=== PATIENT | male | born 1960 | race Caucasian/White ===

== ENCOUNTER → 2017-08-04 | Outpatient (CLI) | payer BC ==
--- NOTE | 2017-08-04 15:58 | XR ---
EXAMINATION TYPE: XR humerus LT DATE OF EXAM: 08/04/2017 CLINICAL HISTORY: pain TECHNIQUE: Frontal and lateral images of the left humerus are obtained. COMPARISON: None. FINDINGS: There is soft tissue mass resulting in bony remodeling with cortical and intramedullary irr egularity involving the middle to distal portions of the left humeral diaphysis. 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 Strict clinical correlation is advised. Displaced fracture at this time. IMPRESSION: There is no acute fracture or dislocation. Soft tissue mass with cortical and intramedullary irregula rity involving the right humeral diaphysis extending from its midportion distally. 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 Strict clinical correlation advised. ICD 10 NO FRACTURE, INITIAL EVALUATION
--- NOTE | 2017-08-04 16:00 | XR ---
EXAMINATION TYPE: XR chest 2V DATE OF EXAM: 08/04/2017 COMPARISON: 08/04/2017 HISTORY: Shortness of breath TECHNIQUE: Frontal and lateral views of the chest are obtained. FINDINGS: Scattered senescent parenchymal changes noted. Hyperinflation compatible with COPD. No evidence for infiltrate. No evidence for atelectasis. Heart size is stable. Mediastinal structures are stable and grossly unremarkable. No evidence for hilar prominence. Degenerative changes dorsal spine. IMPRESSION: 1. No evidence for acute pulmonary disease.
--- NOTE | 2017-08-04 17:28 | US ---
EXAMINATION TYPE: US venous doppler duplex UE LT DATE OF EXAM: 08/04/2017 COMPARISON: NONE CLINICAL HISTORY: R22.32 Left arm swelling. Left arm swelling x a few months but feels like it is get ting worse. 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 No sharp pain but has a little tin gling. SIDE PERFORMED: Left Left Arm: Appears NEGATIVE for DVT for veins visualized. Unable to visualize brachial veins due to m ass like structure surrounding brachial artery. Upper arm mass at swelling area estimated at 13.5 x 7.5 x 8.5 cm IMPRESSION: There is a complex mass in the anterior left upper arm consistent with muscle contraction and tendon tear. No evidence of deep venous thrombosis. Other soft tissue Mass Etiology is not excluded.
== END | disposition home or self-care (01) ==
LOC: RADUSWWP 15:27
PROVIDERS: ATTEND Physician Assistant
DX: R22.32 Localized swelling, mass and lump, left upper limb (principal); F17.200 Nicotine dependence, unspecified, uncomplicated
CPT/HCPCS: 71046

== ENCOUNTER → 2017-08-08 | Outpatient (CLI) | payer BC ==
--- NOTE | 2017-08-09 02:40 | MR ---
MR scan of the left humerus. History sarcoma. Comparison none. TECHNIQUE: Multiplanar multiecho imaging of the left humerus was performed without and subsequently with intrave nous contrast. The contrast was Magnevist 8.5 mL. FINDINGS: There is a large somewhat lobulated mass involving the entire left upper arm extending from the supra condylar distal humerus to the proximal shaft of the humerus. This has overall size of 22 x 9 cm. The re is some mild surrounding subcutaneous edema. There is posterior displacement of the triceps muscle and anterior displacement of biceps muscle. There is mild enhancement of the mass. The mass is wrapp ed around the brachial artery and nerve. There is probably some muscle bundle infiltration on the lat eral aspect of the mass. I see no humerus fracture. IMPRESSION: Large mass is somewhat wrapped around the entire shaft of the humerus and displacing the muscle bundl es. No fracture seen. There is mild enhancement. This appearance is consistent with a soft tissue mark coma. I do not see definite bone involvement to suggest osteosarcoma. There is moderate subcutaneous edema around the upper arm..
== END | disposition home or self-care (01) ==
LOC: RADMRIMAIN 19:43
PROVIDERS: ATTEND Family Medicine
DX: C49.9 Malignant neoplasm of connective and soft tissue, unspecified (principal); R60.0 Localized edema
CPT/HCPCS: 73220; A9581

== ENCOUNTER → 2017-08-25 | Outpatient (CLI) | payer BC ==
--- NOTE | 2017-08-26 11:25 | ECHOF ---
Referral Reason:Lymphoma C83.94,Z01.818 Pre chemo MEASUREMENTS -------- HEIGHT: 182.9 cm WEIGHT: 86.6 kg BP: RVIDd: 3.4 cm (< 3.3) IVSd: 1.0 cm (0.6 - 1.1) LVIDd: 5.0 cm (3.9 - 5.3) LVPWd: 1.0 cm (0.6 - 1.1) IVSs: 1.6 cm LVIDs: 3.3 cm LVPWs: 1.9 cm Ao Diam: 3.6 cm (2.0 - 3.7) AV Cusp: 1.5 cm (1.5 - 2.6) LA Diam: 2.7 cm (2.7 - 3.8) MV EXCURSION: 20.130 mm (> 18.000) MV EF SLOPE: 242 mm/s (70 - 150) EPSS: 0.8 cm MV E Michael: 0.61 m/s MV DecT: 199 ms MV A Michael: 0.68 m/s MV E/A Ratio: 0.90 RAP: 5.00 mmHg RVSP: 19.26 mmHg FINDINGS -------- Sinus rhythm. This was a technically difficult study with suboptimal views. The left ventricular size is normal. Left ventricular wall thickness is normal. Overall left vent ricular systolic function is low-normal with, an EF between 50 - 55 %. The right ventricle is mildly enlarged. The left atrium is normal in size. The right atrium is normal in size. Lumason used The aortic valve was not well visualized. There is trace mitral regurgitation. Trace tricuspid regurgitation present. The right ventricular systolic pressure, as measured by Dopp ler, is 19.26mmHg. The pulmonic valve was not well visualized. The aortic root size is normal. The pericardium is normal. CONCLUSIONS -------- 1. Sinus rhythm. 2. This was a technically difficult study with suboptimal views. 3. The left ventricular size is normal. 4. Left ventricular wall thickness is normal. 5. Overall left ventricular systolic function is low-normal with, an EF between 50 - 55 %. 6. The right ventricle is mildly enlarged. 7. The left atrium is normal in size. 8. The right atrium is normal in size. 9. Lumason used 10. The aortic valve was not well visualized. 11. There is trace mitral regurgitation. 12. Trace tricuspid regurgitation present. 13. The right ventricular systolic pressure, as measured by Doppler, is 19.26mmHg. 14. The pulmonic valve was not well visualized. 15. The aortic root size is normal. 16. The pericardium is normal. COLLECTION CARD CLERK: Anita Hazel RDCS
== END | disposition home or self-care (01) ==
LOC: RADECHMAIN 14:53
PROVIDERS: ATTEND Internal Medicine Hematology & Oncology
DX: Z01.818 Encounter for other preprocedural examination (principal); I51.7 Cardiomegaly; C83.34 Diffuse large B-cell lymphoma, lymph nodes of axilla and upper limb
CPT/HCPCS: 93306; Q9950

== ENCOUNTER → 2017-08-27 | Outpatient (CLI) | payer BC ==
--- NOTE | 2017-08-28 13:33 | PE ---
Nuclear medicine PET/CT HISTORY: Lymphoma, initial Patient received 10.5 mCi F-18 FDG intravenously in delayed scanning was performed from the skull bas e to the mid thighs. Localization and attenuation correction CT scan was performed. Exam correlated t o MR left humerus 08/08/2017, CT abdomen pelvis 12/27/2016 Neck and chest: There is extensive abnormal density involving the proximal left upper extremity, ther e is associated hypermetabolic uptake, SUV is 24. No suspicious hypermetabolic uptake is otherwise no violeta. The lungs show some apical emphysematous change, there is no suspicious lung nodule. No mediasti nal, axillary, or hilar adenopathy. Subpectoral nodes shows only faint uptake, SUV 1.7 in the left up per chest. Abdomen pelvis: No suspicious hypermetabolic uptake. No retroperitoneal adenopathy, no evident liver mass. Osseous structures: Otherwise unremarkable. No suspicious hypermetabolic uptake within the axial skel eton. IMPRESSION: Hypermetabolic uptake is limited to the left upper extremity with additional finding of s mall subpectoral node as described.
== END | disposition home or self-care (01) ==
LOC: RADPETMAIN 16:47
PROVIDERS: ATTEND Internal Medicine Hematology & Oncology
DX: C83.34 Diffuse large B-cell lymphoma, lymph nodes of axilla and upper limb (principal)
CPT/HCPCS: 78815; A9552

== ENCOUNTER 2017-09-01 11:14 | Day surgery (SDC) | payer BC ==
[2017-08-29 08:33] VITALS: BMI 27.2
[~2017-09-01 11:14] MED LIST: DEXAMETHASONE SOD PHOSPHATE 10 MG/ML 1 ML VIAL IV ONE; HEPARIN SODIUM,PORCINE 5,000 UNIT/ML 1 ML VIAL SQ ONE; HYDROmorphone 0.5 MG/0.5 ML SYRINGE IVP PRN; LACTATED RINGERS 1,000 ML IV SCH; ONDANSETRON 4 MG/2 ML VIAL IVP ONE; Pre Op ABX Message 1 EACH MISC MISCELLANE ONE
[2017-09-01 11:37] VITALS: RESP 16; TEMP 98.5
[2017-09-01] MEDS ORDERED: LIDOCAINE 1% 20 ML VIAL (10MG/ML) FOR IV START INTRADERMA ONE (11:43)
[2017-09-01] MEDS ORDERED: SCOPOLAMINE 1.5MG/72HR PATCH TRANSDERM ONE (11:46)
[2017-09-01] MEDS ORDERED: fentaNYL (PF) 50 MCG/ML 2 ML AMP ONE (12:55)
[2017-09-01] MEDS ORDERED: KETAMINE 10 MG/ML 20 ML VIAL ONE (12:55)
[2017-09-01] MEDS ORDERED: MIDAZOLAM 2 MG/2 ML VIAL ONE (12:55)
[2017-09-01] MEDS ORDERED: LIDOCAINE 1% INJ 10MG/ML (20 ML MDV) ONE (12:55)
[2017-09-01] MEDS ORDERED: PROPOFOL 10 MG/ML 20 ML VIAL IV ONE (12:55)
[2017-09-01] MEDS ORDERED: diphenhydrAMINE 50 MG/ML 1 ML VIAL ONE (12:55)
--- NOTE | 2017-09-01 12:56 | P.GSHP ---
History of Present Illness H&P Date: 09/01/17 Chief Complaint: Lymphoma Patient here today for combined bone marrow biopsy and Port-A-Cath placement. Patient recently diagnosed with lymphoma. Has not had a port in the past. Chemotherapy to begin next week. Past Medical History Past Medical History: Cancer Additional Past Medical History / Comment(s): Recent dx of lymphoma, hx of kidney stones History of Any Multi-Drug Resistant Organisms: None Reported Past Surgical History: No Surgical Hx Reported Additional Past Surgical History / Comment(s): has had one sx after "split his chest open" in industrial accident. Past Anesthesia/Blood Transfusion Reactions: No Reported Reaction Past Psychological History: Anxiety Additional Psychological History / Comment(s): states especially with MRI Smoking Status: Current every day smoker Past Alcohol Use History: None Reported Additional Past Alcohol Use History / Comment(s): smokes 1pdd for 40 plus yrs Past Drug Use History: Marijuana Additional Drug Use History / Comment(s): instructed to hold 24 hrs prior to procedure - Past Family History Father Family Medical History: Cancer Medications and Allergies Home Medications Medication Instructions Recorded Confirmed Type No Known Home Medications 08/29/17 09/01/17 History Allergies Allergy/AdvReac Type Severity Reaction Status Date / Time hydrocodone [From Vicodin] AdvReac Severe Nausea & Verified 09/01/17 11:32 Vomiting alprazolam [From Xanax] AdvReac Nausea & Verified 09/01/17 11:32 Vomiting Surgical - Exam Vital Signs Temp Pulse Resp BP Pulse Ox 98.5 F 89 16 131/81 97 09/01/17 11:36 09/01/17 11:36 09/01/17 11:36 09/01/17 11:36 09/01/17 11:36 Physical exam: General: Well-developed, well-nourished HEENT: Normocephalic, sclerae nonicteric Abdomen: Nontender, nondistended Extremities: No edema Neuro: Alert and oriented Assessment and Plan (1) Lymphoma Narrative/Plan: Will proceed with Port-A-Cath placement at this time. Dr. Meneses Will proceed with bone marrow biopsy at the same time. Current Visit: Yes Status: Acute Code(s): C85.90 - NON-HODGKIN LYMPHOMA, UNSPECIFIED, UNSPECIFIED SITE SNOMED Code(s): 976239215
[2017-09-01] MEDS ORDERED: SODIUM CHLORIDE 0.9% 50 ML with ceFAZolin 2,000 MG IV ONE ×2 (13:20)
[2017-09-01] MEDS ORDERED: LIDOCAINE 1% INJ 10MG/ML (20 ML MDV) SQ ONE (13:40)
[2017-09-01 13:43] LABS: Basophils % (A) 0 %; Eosinophils # (A) 0.1 k/uL (0-0.7); Eosinophils % (A) 1 %; HCT 37.6 % (39.0-53.0); HGB 13.2 gm/dL (13.0-17.5); Lymphocytes # (A) 1.8 k/uL (1.0-4.8); Lymphocytes % (A) 19 %; MCH 31.4 pg (25.0-35.0); MCV 89.6 fL (80.0-100.0); Mean Platelet Volume 7.6; Monocytes # (A) 0.8 k/uL (0-1.0); Monocytes % (A) 9 %; Neutrophils # (A) 6.9 k/uL (1.3-7.7); Neutrophils % (A) 70 %; Platelet Count 352 k/uL (150-450); RBC 4.19 m/uL (4.30-5.90); RDW 13.4 % (11.5-15.5); WBC 9.8 k/uL (3.8-10.6)
--- NOTE | 2017-09-01 14:06 | FL ---
EXAMINATION TYPE: FL guided central line placemt DATE OF EXAM: 09/01/2017 CLINICAL HISTORY: Port-A-Cath insertion TECHNIQUE: Fluoroscopy. COMPARISON: None. FINDINGS/IMPRESSION: Fluoroscopic guidance was provided during procedure performed by Dr. Zazueta. A total of 4 seconds of fluoroscopic time was utilized during the procedure and 2 spot images was acqui red during placement of a Port-A-Cath in the superior vena cava.
[2017-09-01] MEDS ORDERED: NALOXONE 0.4 MG/ML 1 ML VIAL IV PRN (14:19)
[2017-09-01] MEDS ORDERED: HYDROcodone/APAP 5-325MG 1 EACH TAB PO PRN (14:19)
--- NOTE | 2017-09-01 14:21 | P.OP ---
Date of Procedure: 09/01/17 Procedure(s) Performed: PREOPERATIVE DIAGNOSIS: Lymphoma POSTOPERATIVE DIAGNOSIS: Same PROCEDURE: Port-A-Cath placement SURGEON: Carlita EBL: Minimal ANESTHESIA: Sedation COMPLICATIONS: None OPERATIVE PROCEDURE: Patient was brought and placed on the operative table in the supine position. The patient was sedated per anesthesia that time. The chest and neck were prepped and draped in usual sterile fashion. The ultrasound probe was used to identify the location of the right internal jugular vein. The skin was localized with lidocaine. The Seldinger needle was advanced into the IJ under ultrasound guidance. The wire was advanced through the needle under fluoroscopic guidance into the superior vena cava. A port pocket was created in the right infraclavicular location. The catheter was tunneled from the wire entrance site to the port pocket. The port was then connected to the catheter. The dilator introducer was threaded over the guidewire. The guidewire and dilator were then removed. The catheter was advanced through the introducer and introducer was then removed. The tip was seen to be in the right atrial junction. Port was flushed with both saline and a Hep-Lock solution. There was good flow both in and out of the port. The port was sutured in underlying tissues using 3-0 silk sutures. The subcutaneous tissues were reapproximated using 3-0 Vicryl sutures and the skin at both locations using 4-0 Monocryl sutures. Steri-Strips and sterile dressings then applied. DISPOSITION: Stable to recovery room
--- NOTE | 2017-09-01 14:42 | XR ---
EXAMINATION TYPE: XR chest 1V confirm line [facility] DATE OF EXAM: 09/01/2017 COMPARISON: 08/04/2017 HISTORY: 57-year-old male Central line placement, shortness of breath TECHNIQUE: Single frontal view of the chest is obtained. FINDINGS: Right anterior chest wall injection port with catheter tip at the lower SVC. Normal variant azygos fi ssure. Heart normal size. Aorta and pulmonary vasculature within normal limits. No consolidation, pne umothorax, or pleural effusion. IMPRESSION: No acute cardiopulmonary process.
--- NOTE | 2017-09-01 14:47 | PCN ---
PROCEDURE NOTE PREOP DIAGNOSIS: Lymphoma. POSTOP DIAGNOSIS: Lymphoma. ANESTHESIA: Local with IV systemic sedation. DETAILS: Utilizing sterile technique, the skin overlying the right iliac crest was prepared with Betadine and alcohol. After adequate sterile draping, local anesthesia and systemic sedation size 11 4-inch Jamshidi needle was utilized to access the periosteum disease. A total of 15 mL of aspirate as well as 1 cm bone core biopsies were obtained. The patient tolerated the procedure very well. There was no immediate procedure related complication. TOTAL BLOOD LOSS: Less than 1 mL. The results pending. MMODL / IJN: [id number] /
[2017-09-01 14:52] VITALS: BP 106/72; PULSE 79
== END 2017-09-01 15:13 | disposition home or self-care (01) ==
LOC: OR 11:14
PROVIDERS: ATTEND Internal Medicine Hematology & Oncology
DX: C85.90 Non-Hodgkin lymphoma, unspecified, unspecified site (principal); F17.210 Nicotine dependence, cigarettes, uncomplicated; F41.9 Anxiety disorder, unspecified; Z88.5 Allergy status to narcotic agent; Z88.8 Allergy status to other drugs, medicaments and biological substances
CPT/HCPCS: 85025; 77001; 36561; 38222; C1788; J2250; J1200; J1644; J1100; J2405; J2001; J3010; J1642; J0690; J2704

== ENCOUNTER → 2017-11-29 | Outpatient (CLI) | payer BC, OTHER ==
[2017-11-29 16:50] LABS: Blood Urea Nitrogen 12 mg/dL (9-20)
--- NOTE | 2017-11-29 18:03 | CT ---
EXAMINATION TYPE: CT angio chest with contrast and with 3-D Reconstruction renderings. DATE OF EXAM: 11/29/2017 5:25 PM COMPARISON: None HISTORY: Chest pain and SOB CT DLP: 275.8 mGycm Automated exposure control for dose reduction was used. CONTRAST: CTA scan of the thorax is performed with IV Contrast, patient injected with 80 mL of Isovue 370, pulm onary embolism protocol. 3-D reconstructions. FINDINGS: LUNGS: The lungs are grossly clear, there is no concerning parenchymal mass or nodule identified. T here is no pleural effusion or pneumothorax seen. The tracheobronchial tree is patent. MEDIASTINUM: There is satisfactory enhancement of the pulmonary artery and its branches, there is no CT evidence for pulmonary embolism. The aorta is unremarkable. There are no greater than 1 cm hilar o r mediastinal lymph nodes. No cardiomegaly. Subtle coronary calcifications detected. No pericardial effusion. OTHER: No additional significant abnormality is seen. IMPRESSION: NO ACUTE PROCESS. SUBTLE CORONARY CALCIFICATIONS DETECTED.
== END | disposition home or self-care (01) ==
LOC: RADCTMAIN 15:54
PROVIDERS: ATTEND Internal Medicine Hematology & Oncology
DX: I25.10 Atherosclerotic heart disease of native coronary artery without angina pectoris (principal)
CPT/HCPCS: 82565; 84520; 71275; 36415; Q9967

== ENCOUNTER → 2017-12-10 | Outpatient (CLI) | payer BC, OTHER ==
--- NOTE | 2017-12-10 19:56 | PE ---
EXAMINATION TYPE: PET CT fusion skull to thigh DATE OF EXAM: 12/10/2017 COMPARISON: Prior PET/CT August 27, 2017. CTA chest November 29, 2017. HISTORY: Lymphoma initially diagnosed left arm completed chemotherapy November 10. TECHNIQUE: Following the intravenous administration of 10.61 mCi of F-18 FDG, whole body images are performed from the skull base to the midthigh. Images are reviewed on the computer in the coronal, a xial, and sagittal planes. Reconstructed rotating images are created on independent workstation and reviewed on the computer. A noncontrast CT is performed in conjunction with the PET scan. SCAN: Subsequent Scan FINDINGS: AVERAGE MEDIASTINUM SUV: 2.28. AVERAGE LIVER SUV: 2.34. SKULL BASE AND NECK: No new areas of suspicious hypermetabolic uptake are identified. CHEST, MEDIASTINUM, AND HILAR REGION: No new areas of suspicious hypermetabolic uptake are seen. There is marked interval improvement in abnormal uptake in the left upper extremity on the periphery of the field of view but also marked improvement in abnormal soft tissue surrounding the humeral shaf t. No residual abnormal hypermetabolic uptake is seen on current study. ABDOMEN AND PELVIS: No new areas of suspicious hypermetabolic uptake. OSSEOUS STRUCTURES: No new areas of suspicious hypermetabolic uptake. OTHER CT: There is new right internal jugular central venous catheter terminating in SVC. There is azygos lobe/fissure with mild underlying emphysematous change redemonstrated. Some diverticula in the sigmoid colon are redemonstrated. There is some facet arthropathy in the lower lumbar spine. IMPRESSION: Complete metabolic response with no evidence of new or residual hypermetabolic uptake to suggest active or metastatic malignancy.
== END | disposition home or self-care (01) ==
LOC: RADPETMAIN 14:55
PROVIDERS: ATTEND Internal Medicine Hematology & Oncology
DX: C83.34 Diffuse large B-cell lymphoma, lymph nodes of axilla and upper limb (principal)
CPT/HCPCS: 78815; A9552

== ENCOUNTER 2018-03-01 18:50 | Emergency (ER) | payer BC, OTHER ==
[2018-03-01 20:32] VITALS: TEMP 97
--- NOTE | 2018-03-01 20:53 | ED ---
Lower Extremity Injury HPI - General Chief Complaint: Extremity Injury, Lower Stated Complaint: left ankle injury slipped off bottom step Time Seen by Provider: 03/01/18 20:29 Source: patient, family, RN notes reviewed, old records reviewed Mode of arrival: wheelchair Limitations: no limitations - History of Present Illness Initial Comments: This is a 57-year-old male the ER presenting with left ankle injury left ankle pain. Patient to follow-up no sports. Said it was slippery icy and while walking down the front steps he did feel his ankle turn over and pop. Patient is severe left ankle pain, no other injury noted, patient denies significant pain not requiring anything for pain currently. MD Complaint: ankle injury (Left) -: hour(s) Injury: Ankle: Left (Significant edema and swelling, deformity) Type of Injury: inversion Place: home Severity: moderate Severity scale (1-10): 6 Improves With: nothing Worsens With: weight bearing Context: fall Associated Symptoms: snap/pop sensation - Related Data Home Medications Medication Instructions Recorded Confirmed ALPRAZolam [Xanax] 1 mg PO DAILY PRN 03/01/18 03/01/18 Ibuprofen [Motrin] 600 mg PO Q8HR PRN 03/01/18 03/01/18 Omeprazole 20 mg PO DAILY PRN 03/01/18 03/01/18 Allergies Allergy/AdvReac Type Severity Reaction Status Date / Time hydrocodone [From Vicodin] AdvReac Severe Nausea & Verified 03/01/18 21:10 Vomiting Review of Systems ROS Statement: Those systems with pertinent positive or pertinent negative responses have been documented in the HPI. ROS Other: All systems not noted in ROS Statement are negative. Past Medical History Past Medical History: No Reported History Additional Past Medical History / Comment(s): Lymphoma type B History of Any Multi-Drug Resistant Organisms: None Reported Past Surgical History: No Surgical Hx Reported Additional Past Surgical History / Comment(s): mediport Past Psychological History: Anxiety Smoking Status: Current every day smoker Past Alcohol Use History: Occasional Past Drug Use History: None Reported General Exam - General Exam Comments Initial Comments: Patient does have deformity swelling significant left lower extremity, ankle Limitations: no limitations General appearance: alert, in no apparent distress Head exam: Present: atraumatic, normocephalic, normal inspection Eye exam: Present: normal appearance, PERRL, EOMI. Absent: scleral icterus, conjunctival injection, periorbital swelling ENT exam: Present: normal exam, mucous membranes moist Neck exam: Present: normal inspection. Absent: tenderness, meningismus, lymphadenopathy Respiratory exam: Present: normal lung sounds bilaterally. Absent: respiratory distress, wheezes, rales, rhonchi, stridor Cardiovascular Exam: Present: regular rate, normal rhythm, normal heart sounds. Absent: systolic murmur, diastolic murmur, rubs, gallop, clicks GI/Abdominal exam: Present: soft, normal bowel sounds. Absent: distended, tenderness, guarding, rebound, rigid Extremities exam: Present: normal inspection, full ROM, normal capillary refill. Absent: tenderness, pedal edema, joint swelling, calf tenderness Back exam: Present: normal inspection Neurological exam: Present: alert, oriented X3, CN II-XII intact Psychiatric exam: Present: normal affect, normal mood Skin exam: Present: warm, dry, intact, normal color. Absent: rash Course Vital Signs 03/01/18 20:25 Temperature 97 F L Pulse Rate 90 Respiratory 20 Rate Blood Pressure 128/71 O2 Sat by Pulse 97 Oximetry - Reevaluation(s) Reevaluation #1: 03/01/18 21:44 Medical record is reviewed Reevaluation #2: 03/01/18 21:44 Patient not requiring anything for pain Reevaluation #3: 03/01/18 21:[address] Talbert regarding injury, he is aware and will follow-up with patient and the office tomorrow Medical Decision Making - Medical Decision Making 57 male the ER for evaluation of left ankle pain. Twisted left ankle does have trimalleolar fracture left ankle, ankle is splinted here in the emergency room occasional patient can be discharged home - Radiology Data Radiology results: report reviewed (X-ray left ankle shows positive left ankle trimalleolar fracture), image reviewed Disposition Clinical Impression: Closed left trimalleolar fracture, Fall Disposition: HOME SELF-CARE Condition: Good Instructions: Ankle Fracture (ED) Is patient prescribed a controlled substance at d/c from ED?: No Referrals: Cuauhtemoc Talbert MD [STAFF PHYSICIAN] - 1-2 days
--- NOTE | 2018-03-01 21:11 | XR ---
EXAMINATION TYPE: XR ankle complete LT DATE OF EXAM: 03/01/2018 COMPARISON: NONE HISTORY: Ankle pain TECHNIQUE: 3 views FINDINGS: There is oblique fracture distal fibula. There is transverse fracture medial malleolus with 4 mm lateral displacement of the fragment. There is also apparent large nondisplaced chip fracture o f the posterior malleolus. This measures 22 x 7 mm. There is no dislocation. IMPRESSION: There is trimalleolar fracture left ankle without significant displacement.
[2018-03-01 21:51] VITALS: BP 144/74; PULSE 77; RESP 18
== END 2018-03-01 21:50 | disposition home or self-care (01) ==
LOC: EC 18:50
DX: S82.852A Displaced trimalleolar fracture of left lower leg, initial encounter for closed fracture (principal); F17.200 Nicotine dependence, unspecified, uncomplicated; Z88.5 Allergy status to narcotic agent; Z85.72 Personal history of non-Hodgkin lymphomas; W00.0XXA Fall on same level due to ice and snow, initial encounter; Y93.01 Activity, walking, marching and hiking; Y92.008 Other place in unspecified non-institutional (private) residence as the place of occurrence of the external cause
CPT/HCPCS: 99284

== ENCOUNTER 2018-03-13 13:05 | Day surgery (SDC) | payer BC, OTHER ==
[2018-03-06 14:13] VITALS: BMI 28.5
[~2018-03-13 13:05] MED LIST changes: +ACETAMINOPHEN TAB 500 MG TAB PO ONE; -DEXAMETHASONE SOD PHOSPHATE 10 MG/ML 1 ML VIAL IV ONE; -HEPARIN SODIUM,PORCINE 5,000 UNIT/ML 1 ML VIAL SQ ONE; -HYDROmorphone 0.5 MG/0.5 ML SYRINGE IVP PRN; -LACTATED RINGERS 1,000 ML IV SCH; -Pre Op ABX Message 1 EACH MISC MISCELLANE ONE; +ceFAZolin IN SWFI 2 GM/20 ML SYRINGE IVP ONE
[2018-03-13] MEDS ORDERED: LACTATED RINGERS 1,000 ML IV ONE ×2 (13:50→17:55)
[2018-03-13] MEDS ORDERED: LIDOCAINE 1% 20 ML VIAL (10MG/ML) FOR IV START INTRADERMA ONE (13:51)
[2018-03-13] MEDS ORDERED: DEXAMETHASONE SOD PHOSPHATE 10 MG/ML 1 ML VIAL IV ONE (14:00)
[2018-03-13] MEDS ORDERED: MIDAZOLAM 2 MG/2 ML VIAL IVP ONE (15:11)
[2018-03-13] MEDS ORDERED: ROPIVACAINE 5 MG/ML 30 ML VIAL ONE (16:08)
[2018-03-13] MEDS ORDERED: PROPOFOL 10 MG/ML 20 ML VIAL IV ONE (16:08)
[2018-03-13] MEDS ORDERED: SUCCINYLCHOLINE CHLORIDE 100 MG/5 ML SYR IV ONE (16:08)
[2018-03-13] MEDS ORDERED: LIDOCAINE 2%-EPI 1:100,000 20 ML VIAL ONE (16:08)
[2018-03-13] MEDS ORDERED: ROCURONIUM BROMIDE 10 MG/ML 10 ML VIAL IV ONE (16:08)
[2018-03-13] MEDS ORDERED: LIDOCAINE 1% INJ 10MG/ML (20 ML MDV) ONE (16:08)
[2018-03-13] MEDS ORDERED: MIDAZOLAM 2 MG/2 ML VIAL ONE (16:08)
[2018-03-13] MEDS ORDERED: HYDROmorphone (PF) 1 MG/ML ONE (16:08)
[2018-03-13] MEDS ORDERED: NEOSTIGMINE 1 MG/ML 10 ML VIAL ONE (16:08)
[2018-03-13] MEDS ORDERED: GLYCOPYRROLATE 0.2 MG/ML 2 ML VIAL ONE (16:08)
[2018-03-13] MEDS ORDERED: fentaNYL (PF) 50 MCG/ML 2 ML AMP ONE (16:08)
[2018-03-13] MEDS ORDERED: HYDROmorphone 0.5 MG/0.5 ML SYRINGE IVP PRN ×2 (18:14)
[2018-03-13] MEDS ORDERED: SENNOSIDES-DOCUSATE SODIUM 1 EACH TAB PO PRN (18:14)
[2018-03-13] MEDS ORDERED: HYDROmorphone 1 MG/ML 1 ML SYRINGE IVP PRN (18:14)
[2018-03-13] MEDS ORDERED: TEMAZEPAM 15 MG CAP PO PRN (18:14)
[2018-03-13] MEDS ORDERED: diphenhydrAMINE 25 MG CAP PO PRN (18:14)
[2018-03-13] MEDS ORDERED: traMADol 50 MG TAB PO PRN (18:18)
--- NOTE | 2018-03-13 20:06 | FL ---
Fluoroscopy HISTORY: Fracture of ankle 36 seconds fluoroscopy time supplied to the referring clinician. 2 intraoperative C-arm images docum ent the procedure. See dictated report from orthopedic surgery.
--- NOTE | 2018-03-13 20:07 | XR ---
Limited left ankle HISTORY: Fracture 2 intraoperative C-arm images document the procedure
[2018-03-14] MEDS: ceFAZolin IN SWFI 2 GM/20 ML SYRINGE IVP SCH ×2 (00:02→09:38)
[2018-03-14 04:27] VITALS: RESP 16; TEMP 97.6
[2018-03-14 07:30] VITALS: BP 119/79; PULSE 80
[2018-03-14] MEDS ORDERED: ACETAMINOPHEN TAB 500 MG TAB PO PRN (09:07)
--- NOTE | 2018-03-14 09:16 | P.DS ---
Providers Expected date of discharge: 03/14/18 Attending physician: Cuauhtemoc Talbert Consults: 03/13/18 18:14 Consult Physician Routine Consulting Provider: Goyo Olivia Consult Reason/Comments: Medical management Do you want consulting provider notified?: Yes Primary care physician: Goyo Olivia - Discharge Diagnosis(es) (1) Closed left trimalleolar fracture Current Visit: No Status: Acute (2) Fall Current Visit: No Status: Acute Hospital Course: This is a 57-year-old male last seen in our office with complaints of a fall and left ankle pain. He was found to have a trimalleolar fracture. After discussion and consideration, the patient elected to proceed with an ORIF of the left ankle. Patient was seen preoperatively, and medically cleared for surgery by his primary care physician. Patient was admitted to [facility] underwent an ORIF of the left trimalleolar fracture on 03/13/[address] Talbert. The procedure was performed without complications or sequelae. The patient is seen and evaluated at bedside today. Pain is controlled. Patient has no new complaints today and denies any fevers, chills, nausea, vomiting, or shortness of breath. Vital signs are stable. Dressing and splint are clean dry and intact. He is able to wiggle his toes without difficulty. Patient's left lower extremity is neurovascularly intact. The patient is orthopedically stable for discharge today. Patient Condition at Discharge: Stable Plan - Discharge Summary Discharge Rx Participant: No New Discharge Prescriptions: New Aspirin [Adult Low Dose Aspirin EC] 81 mg PO DAILY #1 tablet.dr Masters-Docusate Sodium [Senokot-S] 1 tab PO BID #60 tablet Acetaminophen Tab [Tylenol Tab] 1,000 mg PO Q6HR PRN #30 tablet PRN Reason: Pain No Action Ibuprofen [Motrin] 600 mg PO Q8HR PRN PRN Reason: Pain ALPRAZolam [Xanax] 1 mg PO DAILY PRN PRN Reason: Anxiety Omeprazole 20 mg PO DAILY PRN PRN Reason: GERD traMADol HCL [Ultram] 100 mg PO Q6HR PRN PRN Reason: Pain Discharge Medication List ALPRAZolam [Xanax] 1 mg PO DAILY PRN 03/01/18 [History] Ibuprofen [Motrin] 600 mg PO Q8HR PRN 03/01/18 [History] Omeprazole 20 mg PO DAILY PRN 03/01/18 [History] traMADol HCL [Ultram] 100 mg PO Q6HR PRN 03/06/18 [History] Aspirin [Adult Low Dose Aspirin EC] 81 mg PO DAILY #1 tablet. 03/13/18 [Rx] Sennosides-Docusate Sodium [Senokot-S] 1 tab PO BID #60 tablet 03/13/18 [Rx] Acetaminophen Tab [Tylenol Tab] 1,000 mg PO Q6HR PRN #30 tablet 03/14/18 [Rx] Follow up Appointment(s)/Referral(s): Anita Saldaña, PAC [PHYSICIAN PATTERN ATTENDANT] - 2 Weeks Patient Instructions/Handouts: *Surgery [facility] - (Anesthesia) Discharge Instructions Outpatient Surgery Activity/Diet/Wound Care/Special Instructions: Non wt bearing LLE w walker. Keep splint intact. Discharge Disposition: HOME SELF-CARE
--- NOTE | 2018-03-14 11:53 | P.CONS ---
History of Present Illness - History of Present Illness 57-year-old male with history of lymphoma post chemo and radiation therapy and developed left ankle fracture. Patient's post repair of the ankle fracture. 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 fell 03/01/18 and broke lt ankle-currently using crutches History of Any Multi-Drug Resistant Organisms: None Reported Past Surgical History: No Surgical Hx Reported Additional Past Surgical History / Comment(s): mediport. REPAIR UPPER CHEST MUSCLE R/T PAST FALL Past Anesthesia/Blood Transfusion Reactions: Motion Sickness Past Psychological History: Anxiety Smoking Status: Current every day smoker Past Alcohol Use History: None Reported Additional Past Alcohol Use History / Comment(s): WAS SMOKING OVER 1 PPD, DOWN TO 4 CIGARETTES DAILY. HAS SMOKES FOR OVER 40+ YEARS Past Drug Use History: Marijuana Additional Drug Use History / Comment(s): LAST USED MARIJUANA TODAY. INSTRUCTED TO REFRAIN FROM USE FOR AT LEAST 24 HOURS PRIOR TO PROCEDURE - Past Family History Father Family Medical History: Cancer Sister(s) Family Medical History: CVA/TIA, Myocardial Infarction ([place]), Pulmonary Embolus Brother(s) Family Medical History: CVA/TIA, Myocardial Infarction [place]) Medications and Allergies Home Medications Medication Instructions Recorded Confirmed Type ALPRAZolam [Xanax] 1 mg PO DAILY PRN 03/01/18 03/06/18 History Ibuprofen [Motrin] 600 mg PO Q8HR PRN 03/01/18 03/06/18 History Omeprazole 20 mg PO DAILY PRN 03/01/18 03/06/18 History traMADol HCL [Ultram] 100 mg PO Q6HR PRN 03/06/18 03/13/18 History Aspirin [Adult Low Dose Aspirin EC] 81 mg PO DAILY #1 tablet. 03/13/18 Rx Sennosides-Docusate Sodium 1 tab PO BID #60 tablet 03/13/18 Rx [Senokot-S] Acetaminophen Tab [Tylenol Tab] 1,000 mg PO Q6HR PRN #30 tablet 03/14/18 Rx Allergies Allergy/AdvReac Type Severity Reaction Status Date / Time hydrocodone [From Vicodin] AdvReac Severe Nausea & Verified 03/13/18 13:20 Vomiting Physical Exam Vitals: Vital Signs Temp Pulse Pulse Resp BP BP Pulse Ox 03/14/18 07:10 97.6 F 80 16 119/79 98 03/14/18 04:25 97.6 F 68 16 113/68 96 03/14/18 04:00 68 16 03/14/18 00:00 97.9 F 73 15 132/84 96 03/13/18 20:00 92 15 03/13/18 19:27 97.3 F L 92 15 142/89 96 03/13/18 18:56 84 16 154/89 94 L 03/13/18 18:41 86 16 129/79 98 03/13/18 18:26 80 16 120/80 97 03/13/18 18:11 97 F L 93 20 135/81 94 L 03/13/18 15:33 76 16 130/79 98 03/13/18 13:51 97.4 F L 93 16 139/94 100 Intake and Output 03/13/18 03/14/18 03/14/18 22:59 06:59 14:59 Intake Total 800 240 Output Total 10 Balance 790 240 Intake: IV 800 Oral 240 Output: Estimated Blood Loss 10 Other: Voiding Method Urinal Urinal # Voids 0 2 Weight 95.254 kg 95.254 kg - Constitutional General appearance: mild distress - EENT Eyes: PERRLA Ears: bilateral: normal - Neck Neck: normal ROM - Respiratory Respiratory: bilateral: CTA - Cardiovascular Rhythm: regular - Gastrointestinal General gastrointestinal: soft - Integumentary Integumentary: normal - Neurologic Neurologic: CNII-XII intact - Musculoskeletal Cast to left lower leg - Psychiatric Psychiatric: A&O x's 3, appropriate affect, intact judgment & insight Assessment and Plan Plan: Assessment Left ankle try mallear fracture postrepair History of the lipoma finished chemo and radiation therapy History of GERD Plan Patient medically clear for discharge
--- NOTE | 2018-03-14 13:31 | P.OP ---
Date of Procedure: 03/13/18 Procedure(s) Performed: ORIF trimall fx with Mandy Saldaña Baptiste B oblique distal fibula, transverse medial mall fx PREOPERATIVE DIAGNOSES: 1. Left ankle trimalleolar fracture, (Baptiste B lateral malleolus fracture, transverse medial malleolus fracture, 10% posterior malleolus fracture) 2. Moderate osteopenia of left tibia and fibula POSTOPERATIVE DIAGNOSES: 1. Left ankle trimalleolar fracture, (Baptiste B lateral malleolus fracture, transverse medial malleolus fracture, 10% posterior malleolus fracture) 2. Moderate osteopenia of left tibia and fibula PROCEDURES PERFORMED: 1. Left ankle lateral malleolus fracture open reduction and internal fixation with [employer] locking plate. 2. Left ankle medial malleolus fracture open reduction and internal fixation with cannulated screws ANESTHESIA: camp guard: Anita Saldaña PA-C (assistance with exposure, hemostasis, retraction, fixation, closure, dressing, splint) COMPLICATIONS: None ESTIMATED BLOOD LOSS: Less than 10 mL. TOURNIQUET: approximately 90 minutes DISPOSITION: To post-anesthesia care unit INDICATIONS: The patient is a 57-year-old male, who presents to the operating room today for fixation of ankle fracture. The fracture is a trimalleolar fracture, with a fracture of the lateral malleolus that is high enough to produce talar instability. The fracture of the posterior malleolus is only 10% of the anterior to posterior width of the tibia on the lateral view. I have discussed these issues with the patient, who wishes to proceed with the operative plan. I have explained the details of this surgery thoroughly and also explained the potential risks and complications. These are inclusive of, but not limited to: bleeding, infection, scarring, discomfort, blood vessel and nerve damage, stiffness, weakness, need for further surgery, failure to relieve symptoms, persistence or worsening of problems, , and other risks. The patient is aware of these risks and agrees to proceed with surgery. The consent form has been signed. PROCEDURE: After appropriate consent was obtained, the patient was taken to the operating room and placed supine on the operating table. General anesthesia was initiated. The ankle was removed from the splint and examined for any signs of significant fracture blisters or swelling that would prevent continuation of the surgery. Skin appeared healthy and intact, swellling was moderate but not excessive. The limb was prepped and draped in the usual aseptic fashion with DuraPrep, and the patient was given IV antibiotics. The tourniquet was then inflated to 300 mmHg after careful exsanguination of the limb. Time out was called, confirming patient identity, side, procedure, and administration of antibiotics. Incision was created laterally, centered over the fracture site, for a length of approximately 4 inches. The incision was carried down through skin and into subcutaneous tissues, and blunt dissection then proceeded down to fascia. Fascia was split in line with the incision and the peroneal muscles were retracted posteriorly. The fracture site was exposed with subperiosteal dissection for as much exposure of the bone as was necessary. Fracture hematoma was evacuated and the interior of the fracture site was meticulously cleansed with irrigation and manual extraction of organizing hematoma and bone debris. The fracture was minimally comminuted and oblique in orientation. However, the bone quality was fairly poor, which was surprising in light of this patient's age and gender; however, of note he has recently been treated with chemotherapy for cancer which may explain this bone deficiency. The fracture was mobilized using a joe elevator and reduction was accomplished using a bone clamp, which was also used to secure the fracture. Anatomic reduction was accomplished. An interfragmentary screw was not able to be placed due to the poor bone quality of the dorsal spike of the proximal fragment. The fracture did interlock nicely however, indicating that the fracture was out to length. This was also confirmed with C-arm imaging. Next, a precontoured fibular locking plate from [employer] was selected for size and side. The proximal holes were filled with fully threaded 3.5 mm cortical screws. Distal holes were filled with 5 2.7 mm locking screws and 1 nonlocking 4.0 millimeter cancellus screw. No evidence of joint penetration on the mini-C-arm views was noted. Next, the medial malleolus was evaluated and treated. An incision was created for approximately 2 inches on the medial aspect of the ankle, and carried down through skin sharply and then bluntly using a dissecting scissor down to fascia and periosteum. The fracture was slightly oblique in orientation and had fractured the anterior aspect of the medial malleolus. The fracture fragment was able to be mobilized and secured with a [id number] reduction forceps. Subsequently, a guidepin was placed across the fracture site and several adjustments were made of this guidepin so that the position was perfect on C- arm imaging. The outer cortex was reamed, and 2 appropriately sized 4.0 cannulated cancellus screws with long threads were inserted over the guidepin until they were fully deployed. Final C-arm images were then taken, showing anatomic alignment of the mortise and medial malleolar fracture site. The fracture was noted to be in anatomic position and stress testing under C- arm imaging showed no significant migration, shift, or tilt of the talus with external rotation stress, hindfoot inversion or eversion. Screw lengths were noted to be appropriate and the incision was then irrigated thoroughly using normal saline. Tourniquet was deflated and hemostasis was obtained using electrocautery. Fascial closure was performed with 0-Vicryl suture, subcutaneous closure with 2-0 Vicryl suture. Skin was closed with 3-0 Monocryl suture in running fashion followed by cyanoacrylate skin closure. Sterile dressing was applied and well padded, well molded short leg splint was applied with the ankle in neutral. Patient tolerated the procedure well and taken to recovery room in stable condition. Sponge and needle counts were correct.
== END 2018-03-14 11:15 | disposition home or self-care (01) ==
LOC: OR 13:05 → 1SOBS 17:54 → OR 03-14 11:15
PROVIDERS: ATTEND Orthopaedic Surgery
DX: S82.852A Displaced trimalleolar fracture of left lower leg, initial encounter for closed fracture (principal); M85.862 Other specified disorders of bone density and structure, left lower leg; W00.0XXA Fall on same level due to ice and snow, initial encounter; Z79.899 Other long term (current) drug therapy; H91.90 Unspecified hearing loss, unspecified ear; Z88.5 Allergy status to narcotic agent; R51 Headache; F17.218 Nicotine dependence, cigarettes, with other nicotine-induced disorders; Z92.21 Personal history of antineoplastic chemotherapy; Z92.3 Personal history of irradiation; K21.9 Gastro-esophageal reflux disease without esophagitis; C85.90 Non-Hodgkin lymphoma, unspecified, unspecified site; F41.9 Anxiety disorder, unspecified; Z79.82 Long term (current) use of aspirin
CPT/HCPCS: 27822; 73600; C1713 ×2; J2250; J1100; J2710; J2405; J2001; J3010; J1170 ×2; J2795; J0330; J2704; J0690; 64450

== ENCOUNTER → 2018-04-28 | Outpatient (CLI) | payer BC, OTHER ==
--- NOTE | 2018-05-01 11:12 | BD ---
EXAMINATION TYPE: Axial Bone Density DATE OF EXAM: 04/28/2018 COMPARISON: NONE CLINICAL HISTORY: 57 YR OLD MALE....ICD-10 CODE: Z85.72 HX OF NON HODGKIN'S LYMPHOMA Height: 70 Weight: 214 FRAX RISK QUESTIONS: Family History (Parent hip fracture): YES Glucocorticoids (More than 3mos): YES (Ex: prednisone, prednisolone, methylprednisolone, dexamethasone, and hydrocortisone). History of Fracture in Adulthood: YES Current Tobacco Use: YES RISK FACTORS HISTORY OF: LT ANKLE FRACTURE 57YR OLD, History of Wrist Fracture: ARM A CHILD Family History of Osteoporosis: YES, HER MOTHER WITH BROKEN HIP Diet low in dairy products/other sources of calcium: YES A BIT MEDICATIONS: Prednisone or other steroids: YES, DURING CHEMO HEAVY DOSES How Long: FOR ABOUT A YR Additional Medications: HX OF CHEMO AND RADIATION FINISHED LATE 2017, REFLUX MED, KIDNEY MEDS, ANTIBI OTICS AFTER CHEMO, XANAX, LOW DOSE ASPIRIN, NSAIDS Additional History: HX OF CANCER, AND CHEMO AND RADIATION EXAM MEASUREMENTS: Bone mineral densitometry was performed using the [employer] System. Bone mineral density as measured about the Lumbar spine is: MALE ----- L1-L4(G/cm2): 1.088 T Score Values are as follows: ----- L1: -0.4 ----- L2: -1.6 ----- L3: -0.7 ----- L4: -0.6 ----- L1-L4: -0.8 Bone mineral density BASELINE STUDY Bone mineral density about the R hip (g/cm2): 0.937 Bone mineral density about the L hip (g/cm2): 0.947 T Score values are as follows: -----R Neck: -1.1 -----L Neck: -0.8 -----R Total: -0.6 -----L Total: -0.5 Bone mineral density BASELINE STUDY FRAX%s: THERE IS A 9.4% CHANCE FOR A MAJOR OSTEOPOROTIC FX AND A 1.7% FOR HIP FX...PROBABILITY OF F X IN 10 YRS TIME IMPRESSION: Osteopenia (T Score between -2.5 and -1) with regards to the right femoral neck. There is slightly increased risk of fracture and the patient may be considered for treatment. Re-Screen 2-5 years. NOTE: T-SCORE=SD OF THE YOUNG ADULT MEAN.
== END | disposition home or self-care (01) ==
LOC: RADBDWWP 15:20
PROVIDERS: ATTEND Family Medicine
DX: Z09 Encounter for follow-up examination after completed treatment for conditions other than malignant neoplasm (principal); M85.88 Other specified disorders of bone density and structure, other site; Z85.72 Personal history of non-Hodgkin lymphomas
CPT/HCPCS: 77080

== ENCOUNTER → 2018-06-03 | Outpatient (CLI) | payer BC, OTHER ==
--- NOTE | 2018-06-04 17:25 | PE ---
EXAMINATION TYPE: PET CT fusion skull to thigh DATE OF EXAM: 06/03/2018 COMPARISON: No pertinent CT comparison Prior PET/CT: 12/10/2017 HISTORY: Lymphoma TECHNIQUE: Following the intravenous administration of 13.923 mCi of F-18 FDG, whole body images are performed from the skull base to the midthigh. Images are reviewed on the computer in the coronal, axial, and sagittal planes. Reconstructed rotating images are created on independent workstation and reviewed on the computer. A localization and attenuation correction CT is performed in conjunction with the PET scan. DLP: 525.6 mGycm SCAN: Subsequent Blood glucose: 104 mg/dL Average Mediastinum SUV: 1.01 Average Liver SUV: 2.13 FINDINGS: There appears to be a marker on the right upper extremity on previous appears to be externa l to the patient. Records show the injection site is the left antecubital fossa to the contralateral side. Additionally, the site of abnormality of the left upper extremity. This radiotracer accumulatio n is of uncertain etiology and significance. The upper extremities are largely excluded from the [id number].. Patient's reported left upper ext remity lymphoma is not identified. NECK: No abnormal uptake THORAX: No abnormal uptake ABDOMEN: No abnormal uptake PELVIS: No suspicious uptake. Exam. OSSEOUS STRUCTURES: No abnormal uptake LOCALIZATION CT: Ascending thoracic aorta at the level the main pulmonary artery measures 3.1 cm. The main pulmonary artery the bifurcation measures 2.1 cm. COMPARISON: No significant interval changes identified from the comparison PET/CT. IMPRESSION: 1. No suspicious uptake to suggest metastatic or recurrent lymphoma within the [id number]. 2. The extremities are largely excluded from the [id number]. Previous left upper extremity lymphom a may not be visualized on these images. 3. There appears to be a radiotracer marker at the right upper extremity external to the patient of u ncertain significance. No suspicious uptake is in this region.
== END ==
LOC: RADPETMAIN 07:28
PROVIDERS: ATTEND Internal Medicine Hematology & Oncology
DX: C83.34 Diffuse large B-cell lymphoma, lymph nodes of axilla and upper limb (principal)
CPT/HCPCS: 78815; A9552

== ENCOUNTER 2018-06-07 04:59 | Emergency (ER) | payer BC, OTHER ==
[2018-06-07 05:06] VITALS: RESP 16
[2018-06-07 05:46] LABS: Appearance,Urine Clear (Clear); Bilirubin,Urine Negative (Negative); Blood,Urine Moderate (Negative); Color,Urine Yellow; Glucose,Urine (UA) Negative (Negative); Hyaline Casts,Urine 3 /lpf (0-2); Ketones,Urine Negative (Negative); Leukocyte Esterase,Urine Negative (Negative); Mucus,Urine Occasional /hpf; Nitrite,Urine Negative (Negative); PH, Urine 5.5 (5.0-8.0); Protein,Urine Trace (Negative); RBC,Urine 71 /hpf (0-5); Specific Gravity,Urine 1.031 (1.001-1.035); WBC,Urine 1 /hpf (0-5)
[2018-06-07] MEDS ORDERED: TAMSULOSIN 0.4 MG CAP.ER.24H PO STA (05:50)
[2018-06-07] MEDS ORDERED: ONDANSETRON ODT 4 MG TAB PO STA (05:50)
[2018-06-07] MEDS ORDERED: KETOROLAC 60 MG/2 ML VIAL IM STA (05:51)
--- NOTE | 2018-06-07 05:54 | ED ---
Abdominal Pain HPI - General Chief Complaint: Urogenital Stated Complaint: back pain Time Seen by Provider: 06/07/18 05:05 Source: patient Mode of arrival: ambulatory Limitations: no limitations - History of Present Illness Initial Comments: This patient's 57-year-old man presenting with complaint of flank pain. He states that he had similar episode to this to 3 years ago and was diagnosed with kidney stone. He states that this feels identical to that. The patient states that he had some sporadic symptoms 3 days ago but then the symptoms came on 4-5 hours ago tonight. He has associated urgency, but has not noted any blood in the urine. Patient states that the flank pain radiates to his lower quadrant of his abdomen. She has not had any testicular or groin pain or swelling. Denies other symptoms. MD Complaint: flank pain Onset/Timin -: hour(s) Location: R flank Radiation: RLQ Severity: moderate Quality: sharp Consistency: colicky Improves With: nothing Worsens With: nothing Associated Symptoms: nausea, other (Urinary frequency) Treatments Prior to Arrival: NSAIDs - Related Data Home Medications Medication Instructions Recorded Confirmed ALPRAZolam [Xanax] 1 mg PO DAILY PRN 03/01/18 03/06/18 Ibuprofen [Motrin] 600 mg PO Q8HR PRN 03/01/18 03/06/18 Omeprazole 20 mg PO DAILY PRN 03/01/18 03/06/18 traMADol HCL [Ultram] 100 mg PO Q6HR PRN 03/06/18 03/13/18 Previous Rx's Medication Instructions Recorded Aspirin [Adult Low Dose Aspirin EC] 81 mg PO DAILY #1 tablet. 03/13/18 Sennosides-Docusate Sodium 1 tab PO BID #60 tablet 03/13/18 [Senokot-S] Acetaminophen Tab [Tylenol Tab] 1,000 mg PO Q6HR PRN #30 tablet 03/14/18 Ketorolac [Toradol] 10 mg PO Q6HR PRN #12 tab 06/07/18 Ondansetron Odt [Zofran ODT] 4 mg PO Q8HR PRN #10 tab 06/07/18 Tamsulosin [Flomax] 0.4 mg PO DAILY #14 cap 06/07/18 Allergies Allergy/AdvReac Type Severity Reaction Status Date / Time hydrocodone [From Vicodin] AdvReac Severe Nausea & Verified 06/07/18 05:07 Vomiting Review of Systems ROS Statement: Those systems with pertinent positive or pertinent negative responses have been documented in the HPI. ROS Other: All systems not noted in ROS Statement are negative. Constitutional: Denies: fever, chills Respiratory: Denies: cough, dyspnea Cardiovascular: Denies: chest pain, palpitations Gastrointestinal: Reports: as per HPI, abdominal pain, nausea. Denies: vomiting, diarrhea Genitourinary: Reports: as per HPI, urgency, frequency. 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 fell 03/01/18 and broke lt ankle-currently using crutches History of Any Multi-Drug Resistant Organisms: None Reported Past Surgical History: No Surgical Hx Reported, Orthopedic Surgery Additional Past Surgical History / Comment(s): mediport. left ankle ORIF. REPAIR UPPER CHEST MUSCLE R/T PAST FALL Past Anesthesia/Blood Transfusion Reactions: Motion Sickness Past Psychological History: Anxiety Smoking Status: Current every day smoker Past Alcohol Use History: None Reported Past Drug Use History: Marijuana - Past Family History Father Family Medical History: Cancer Sister(s) Family Medical History: CVA/TIA, Myocardial Infarction ([place]), Pulmonary Embolus Brother(s) Family Medical History: CVA/TIA, Myocardial Infarction ([place]) General Exam Limitations: no limitations General appearance: alert, in no apparent distress Head exam: Present: atraumatic, normocephalic Eye exam: Present: normal appearance Respiratory exam: Present: normal lung sounds bilaterally. Absent: respiratory distress, rales, rhonchi, stridor Cardiovascular Exam: Present: regular rate, normal rhythm, normal heart sounds. Absent: systolic murmur, diastolic murmur, rubs, gallop GI/Abdominal exam: Present: soft. Absent: distended, tenderness, guarding, rebound, rigid, mass, pulsatile mass Back exam: Present: normal inspection. Absent: tenderness, CVA tenderness (R), CVA tenderness (L), paraspinal tenderness, vertebral tenderness Neurological exam: Present: alert Skin exam: Present: warm, dry, intact, normal color. Absent: rash Course Vital Signs 06/07/18 06/07/18 05:03 06:35 Temperature 97.6 F 97.4 F L Pulse Rate 89 75 Respiratory 16 16 Rate Blood Pressure 161/73 123/95 O2 Sat by Pulse 94 L 94 L Oximetry - Reevaluation(s) Reevaluation #1: 06/07/18 06:39 Patient states he is feeling much better following medication. Patient states that this is identical to previous stone and he does have urine consistent with that. He did decline having computed tomography scan. Medical Decision Making - Lab Data Lab Results 06/07/18 Range/Units 03:22 Urine Color Yellow Urine Appearance Clear (Clear) Urine pH 5.5 (5.0-8.0) Ur Specific [place] 1.031 (1.001-1.035) Urine Protein Trace H (Negative) Urine Glucose (UA) Negative (Negative) Urine Ketones Negative (Negative) Urine Blood Moderate H (Negative) Urine Nitrite Negative (Negative) Urine Bilirubin Negative (Negative) Urine Urobilinogen 2.0 (<2.0) mg/dL Ur Leukocyte Esterase Negative (Negative) Urine RBC 71 H (0-5) /hpf Urine WBC 1 (0-5) /hpf Hyaline Casts 3 H (0-2) /lpf Urine Mucus Occasional H (None) /hpf Disposition Clinical Impression: Renal colic Disposition: HOME SELF-CARE Condition: Good Prescriptions: Tamsulosin [Flomax] 0.4 mg PO DAILY #14 cap Ketorolac [Toradol] 10 mg PO Q6HR PRN #12 tab PRN Reason: Pain Ondansetron Odt [Zofran ODT] 4 mg PO Q8HR PRN #10 tab PRN Reason: Nausea Is patient prescribed a controlled substance at d/c from ED?: No Referrals: Goyo Olivia MD [Primary Care Provider] - 1-2 days
[2018-06-07 06:50] VITALS: BP 123/95; PULSE 75; TEMP 97.4
== END 2018-06-07 07:15 | disposition home or self-care (01) ==
LOC: EC 04:59 → SUPCPDRO 04:59 → EC 07:15
DX: N23 Unspecified renal colic (principal); F17.200 Nicotine dependence, unspecified, uncomplicated; Z87.442 Personal history of urinary calculi; Z88.5 Allergy status to narcotic agent; Z85.72 Personal history of non-Hodgkin lymphomas; Z92.21 Personal history of antineoplastic chemotherapy; Z98.890 Other specified postprocedural states
CPT/HCPCS: 81001; 96372; 99283